=== PATIENT | female | born 1980 | race Caucasian/White ===

== ENCOUNTER 2017-10-07 01:21 | Emergency (ER) | payer OTHER ==
[~2017-10-07] VITALS: Ht 172.7 cm; Wt 126.8 kg
[~2017-10-07 01:21] MED LIST: Motrin PO; Percocet 5/325,Endoc PO
[2017-10-07] MEDS ORDERED: DIFLUCAN150 MG PO (01:42)
[2017-10-07] MEDS ORDERED: AUGMENTIN875 MG PO (01:42)
[2017-10-07 02:33] VITALS: BP 114/80
== END 2017-10-07 02:34 | disposition home or self-care (01) ==
LOC: EME 01:21
DX: H66.92 Otitis media, unspecified, left ear (principal); J32.9 Chronic sinusitis, unspecified; F17.200 Nicotine dependence, unspecified, uncomplicated
CPT/HCPCS: 99281; 99284

== ENCOUNTER 2017-12-20 15:11 | Emergency (ER) | payer OTHER ==
[~2017-12-20] VITALS: Ht 172.7 cm; Wt 127.6 kg
[~2017-12-20 15:11] MED LIST changes: +AUGMENTIN875 MG PO; +DIFLUCAN150 MG PO
[2017-12-20 15:41] VITALS: BP 123/86
[2017-12-20] MEDS ORDERED: ADDERALL20 MG PO (19:57)
== END 2017-12-20 16:51 | disposition left against medical advice (07) ==
LOC: EME 15:11
DX: Z76.0 Encounter for issue of repeat prescription (principal); Z53.21 Procedure and treatment not carried out due to patient leaving prior to being seen by health care provider

== ENCOUNTER 2017-12-20 18:14 | Emergency (ER) | payer OTHER ==
[~2017-12-20] VITALS: Ht 172.7 cm; Wt 128.3 kg
[2017-12-20] MEDS ORDERED: ADDERALL20 MG PO (19:57)
[2017-12-20 20:02] VITALS: BP 125/94
== END 2017-12-20 20:03 | disposition home or self-care (01) ==
LOC: EME 18:14
DX: F90.9 Attention-deficit hyperactivity disorder, unspecified type (principal); Z76.0 Encounter for issue of repeat prescription; Z87.891 Personal history of nicotine dependence
CPT/HCPCS: 99281; 99283

== ENCOUNTER 2018-01-06 15:43 | Emergency (ER) | payer OTHER ==
[~2018-01-06] VITALS: Ht 172.7 cm; Wt 127.9 kg
[~2018-01-06 15:43] MED LIST changes: +ADDERALL20 MG PO
[2018-01-06] MEDS ORDERED: ADDERALL20 MG PO (17:03)
[2018-01-06 17:35] VITALS: BP 118/68
== END 2018-01-06 17:38 | disposition home or self-care (01) ==
LOC: EME 15:43
DX: Z76.0 Encounter for issue of repeat prescription (principal); F17.200 Nicotine dependence, unspecified, uncomplicated; Z90.710 Acquired absence of both cervix and uterus
CPT/HCPCS: 99281; 99283

== ENCOUNTER 2018-01-31 12:24 | Emergency (ER) | payer OTHER ==
[~2018-01-31] VITALS: Ht 172.7 cm; Wt 127.0 kg
[2018-01-31] MEDS ORDERED: ADDERALL20 MG PO (15:31)
[2018-01-31 15:46] VITALS: BP 118/79
== END 2018-01-31 15:47 | disposition home or self-care (01) ==
LOC: EME 12:24
DX: Z76.0 Encounter for issue of repeat prescription (principal); F32.9 Major depressive disorder, single episode, unspecified; F17.200 Nicotine dependence, unspecified, uncomplicated
CPT/HCPCS: 99281; 99283